=== PATIENT | male | born 1945 | race Caucasian/White ===

== ENCOUNTER 2021-10-11 11:10 | Inpatient (IN) | payer OTHER, MEDICAID, SELFPAY ==
[~2021-10-11] VITALS: Ht 162.6 cm; Wt 75.7 kg
[2021-10-11 11:10] VITALS: BP_SYST 157
--- NOTE | 2021-10-11 11:10 | NUR ---
Code stroke called at 1110
--- NOTE | 2021-10-11 11:12 | NUR ---
[address]
--- NOTE | 2021-10-11 11:12 | NUR ---
BG 192
--- NOTE | 2021-10-11 11:14 | NUR ---
Ely reeves in ED - 10/11/21 at 1123 by [email or web address] Sent for CT at 1114.
--- NOTE | 2021-10-11 11:45 | NUR ---
MD FAIR CONDUCTED A TELE-MONITOR CONSULTATION/ASSESSMENT WITH PT.
[2021-10-11 12:22] LABS: BASOPHILS % (AUTO) 0.3 % (0.0-2.0); EOSINOPHILS % (AUTO) 0.4 % (0.0-4.0); HEMATOCRIT 43.5 % (36-54); HEMOGLOBIN 14.3 g/dL (14.0-18.0); LYMPHOCYTES # (AUTO) 0.6 K/uL (1.0-5.5); LYMPHOCYTES % (AUTO) 5.1 % (20.5-51.5); MEAN CORPUSCULAR HEMOGLOBIN 30 pg (27-31); MEAN CORPUSCULAR HGB CONC 33 % (32-36); MEAN CORPUSCULAR VOLUME 90 fL (79.0-98.0); MONOCYTES # (AUTO) 0.3 K/uL (0.0-1.0); MONOCYTES % (AUTO) 3.1 % (1.7-9.3); NEUTROPHILS # (AUTO) 9.8 K/uL (1.8-7.7); NEUTROPHILS % (AUTO) 91.1 % (40.0-70.0); PLATELET COUNT (AUTO) 157 K/uL (130-430); RED BLOOD CELL COUNT(AUTO) 4.83 MIL/uL (4.2-6.2); RED CELL DISTRIBUTION WIDTH 14.1 % (9.0-15.0); WHITE BLOOD COUNT (AUTO) 10.8 K/uL (4.8-10.8)
[2021-10-11 12:30] LABS: ANION GAP 11 (5-15); CHLORIDE 107 mmol/L (98-107); CREATININE 2.46 mg/dL (0.55-1.30); GLUCOSE 198 mg/dL (70-99); POTASSIUM 4.8 mmol/L (3.5-5.1); SODIUM SERUM 139 mmol/L (136-145); UREA NITROGEN, BLOOD 37 mg/dL (8-21)
[2021-10-11 12:36] LABS: ALANINE AMINOTRANSFERASE 25 U/L (12-78); ALBUMIN 3.5 g/dL (3.4-4.8); ASPARTATE AMINOTRANSFERASE 14 U/L (10-37); TOTAL BILIRUBIN 0.4 mg/dL (0.0-1.0)
[2021-10-11 12:52] LABS: INR 0.9 (0.80-1.20); PROTHROMBIN TIME 9.5 SECS (9.5-12.5)
--- NOTE | 2021-10-11 13:57 | NUR ---
PT HAS REMAINED STABLE. NO S/S OF [place] CVA, NO BLURRY VISION. NO VOMITING.
[2021-10-11] MEDS ORDERED: INSULIN REGULAR, HUMAN 100 UNITS/ML, 10 ML VIAL (humuLIN R) SUBCUT PRN (14:15)
[2021-10-11] MEDS ORDERED: DEXTROSE 50% JECT 50 ML DISP.SYRIN IVP PRN (14:15)
[2021-10-11 16:54] LABS: BILIRUBIN,URINE NEGATIVE (NEGATIVE); BLOOD, URINE 2+ (NEGATIVE); CLARITY/URINE CLEAR (CLEAR); COLOR,URINE YELLOW (YELLOW); GLUCOSE,URINE NEGATIVE (NEGATIVE); KETONES,URINE NEGATIVE (NEGATIVE); LEUKOCYTE ESTERASE ,URINE NEGATIVE (NEGATIVE); NITRITE, URINE NEGATIVE (NEGATIVE); PROTEIN URINE NEGATIVE (NEGATIVE); UROBILINOGEN,URINE 0.2 (0.2-1.0)
[2021-10-11 17:21] LABS: BARBITURATE, URINE NEGATIVE (NEG <=200); BENZODIAZEPINE, URINE NEGATIVE (NEG <=150); CANNABINOID, URINE NEGATIVE (NEG <=50); COCAINE, URINE NEGATIVE (NEG <=150); METHAMPHETAMINES SCREEN,URINE NEGATIVE (NEG <=500); OPIATE, URINE NEGATIVE (NEG <=100); PHENCYCLIDINE SCREEN,URINE NEGATIVE (NEG <=25); UR TRICYCLIC ANTIDEPRESSANTS NEGATIVE (NEG <=300); URINE AMPHETAMINE NEGATIVE (NEG <=500); URINE METHADONE NEGATIVE (NEG <=200); URINE OXYCODONE SCREEN NEGATIVE (NEG <=100); URINE PROPOXYPHENE SCREEN NEGATIVE (NEG <=300)
[2021-10-11 17:46] LABS: BACTERIA,URINE RARE /HPF (None Seen); WBC,URINE 0-3 /HPF (0-3)
[2021-10-11 17:47] LABS: MUCUS,URINE None Seen /LPF (None Seen)
--- NOTE | 2021-10-11 18:43 | NUR ---
PT TAKEN TO THE TELE FLOOR.
--- NOTE | 2021-10-11 18:43 | NUR ---
IV INSERTED TO THE LEFT HAND 22G.
--- NOTE | 2021-10-11 18:53 | NUR ---
ADMISSION NOTE: Received patient from ER via [facility]. Patient admitted with diagnosis of DIZZINESS. Patient is awake, alert, oriented X 4. Patient oriented to hospital room, call light, toileting and safety-teach back done. Call light within reach. Will continue monitor until endorse to weight shifter RN.
--- NOTE | 2021-10-11 19:20 | NUR ---
RECEIVED BEDSIDE REPORT. PT IN BED AWAKE AND ABLE TO MAKE NEEDS KNOWN. RR EVEN AND UNLABORED ON RA. HOB ELEVATED. BED RAILS UPX2. ALL NEEDS MEET AT THIS TIME. CALL LIGHT WITHIN REACH. WILL CONTINUE TO MONITOR.
[2021-10-11 19:56] VITALS: BP_SYST 155
[2021-10-11] MEDS: NACL 0.9% 1,000 ML IV SCH (20:45)
[2021-10-11 20:48] VITALS: BP_SYST 158
[2021-10-12] VITALS (9 sets, daily range): BP systolic 118–173
--- NOTE | 2021-10-12 | NUR ---
PT EDUCATED TO USE CALL LIGHT IF HE NEEDS ASSISTANCE. PT SET BED ALARM OFF TRYING TO STAND TO USE URINAL. PT RE-EDUCATED TO CALL FOR HELP. WILL CONTINUE TO MONITOR.
[2021-10-12] MEDS: NACL 0.9% 1,000 ML IV SCH (06:20)
--- NOTE | 2021-10-12 06:56 | NUR ---
PT IN BED ASLEEP. PT BLOOD SUGAR 91. PT DENIES FEELING DIZZINESS WHILE LAYING DOWN. HOB ELEVATED. BED RAILS UPX2. CALL LIGHT WITHIN REACH. BED LOCKED IN LOWEST POSITION. WILL ENDORSE CARE TO DAY RN.
--- NOTE | 2021-10-12 08:24 | NUR ---
alert, wide awake, and oriented. able to move right arm and right leg easily; with left arm, with difficulty. Claimed he had 3 strokes in the past. blood pressure taken on both arms, seen by dr Simental this am, awaiting new orders for bp.
[2021-10-12] MEDS ORDERED: hydrALAZINE HCL 20 MG/ML VIAL IVP PRN (09:00)
[2021-10-12] MEDS ORDERED: ENALAPRILAT DIHYDRATE 1.25 MG/ML VIAL IVP PRN (09:00)
--- NOTE | 2021-10-12 09:19 | NUR ---
PAGED DR GARCIA PAGED DR GARCIA FOR ORDERS SPOKE TO JAYMIE AT EXCHANGE
--- NOTE | 2021-10-12 09:24 | NUR ---
got a list of home meds from Jenny grubbs. attending paged x 1, no return phone call yet. for now will administer clonidine 0.1mg po, let's see whether it lowers his bp.
[2021-10-12] MEDS: cloNIDine HCL 0.1 MG TABLET PO PRN ×2 (09:28→21:19)
[2021-10-12] MEDS: ASPIRIN 325 MG TABLET (ECOTRIN) PO SCH (09:29)
[2021-10-12 09:44] LABS: BASOPHILS % (AUTO) 0.6 % (0.0-2.0); EOSINOPHILS # (AUTO) 0.1 K/uL (0.0-0.4); EOSINOPHILS % (AUTO) 1.3 % (0.0-4.0); HEMATOCRIT 43.9 % (36-54); HEMOGLOBIN 14.5 g/dL (14.0-18.0); LYMPHOCYTES # (AUTO) 0.8 K/uL (1.0-5.5); LYMPHOCYTES % (AUTO) 10.8 % (20.5-51.5); MEAN CORPUSCULAR HEMOGLOBIN 30 pg (27-31); MEAN CORPUSCULAR HGB CONC 33 % (32-36); MEAN CORPUSCULAR VOLUME 90 fL (79.0-98.0); MONOCYTES # (AUTO) 0.3 K/uL (0.0-1.0); MONOCYTES % (AUTO) 4.5 % (1.7-9.3); NEUTROPHILS # (AUTO) 6.4 K/uL (1.8-7.7); NEUTROPHILS % (AUTO) 82.8 % (40.0-70.0); PLATELET COUNT (AUTO) 168 K/uL (130-430); RED BLOOD CELL COUNT(AUTO) 4.87 MIL/uL (4.2-6.2); RED CELL DISTRIBUTION WIDTH 14.3 % (9.0-15.0); WHITE BLOOD COUNT (AUTO) 7.7 K/uL (4.8-10.8)
[2021-10-12] MEDS ORDERED: TAMS0.4C96 PO (09:45)
[2021-10-12] MEDS ORDERED: LISI20TA30 PO (09:45)
[2021-10-12] MEDS ORDERED: NOR10 PO (09:45)
[2021-10-12] MEDS ORDERED: GLYB5TAB7 PO (09:45)
[2021-10-12 10:35] LABS: ANION GAP 8 (5-15); CALCIUM 8.2 mg/dL (8.4-11.0); CHLORIDE 106 mmol/L (98-107); CREATININE 2.31 mg/dL (0.55-1.30); GLUCOSE 179 mg/dL (70-99); POTASSIUM 5.6 mmol/L (3.5-5.1); SODIUM SERUM 138 mmol/L (136-145); UREA NITROGEN, BLOOD 32 mg/dL (8-21)
[2021-10-12 10:49] LABS: ALANINE AMINOTRANSFERASE 22 U/L (12-78); ALBUMIN 3.2 g/dL (3.4-4.8); ASPARTATE AMINOTRANSFERASE 16 U/L (10-37); CHOLESTEROL 182 mg/dL (<200); HDL CHOLESTEROL 46 mg/dL (>45); LDL CHOLESTEROL 116 mg/dL (<100); THYROID STIMULATING HORMONE 1.41 uIu/mL (0.34-4.82); TOTAL BILIRUBIN 0.5 mg/dL (0.0-1.0); TRIGLYCERIDES 105 mg/dL (30-150)
--- NOTE | 2021-10-12 17:31 | NUR ---
very alert, oriented, out of bed, walked with standby assistance to the bathroom, gait slow, but steady denied blurred vision, nor dizziness. now US Renal done at bedside. Has an uneventful day.
--- NOTE | 2021-10-12 18:57 | NUR ---
Paged Cholo Christian s/w Tata.
--- NOTE | 2021-10-12 19:13 | NUR ---
today chemistry revealed K+ , bun/cr elevated. attending paged x 1. oncoming to follow up with this.
--- NOTE | 2021-10-12 19:30 | NUR ---
Received patient from AM shift nurse. Patient is AA&Ox4 able to make needs known, denies chest pain, or SOB. Chest rise is even and unlabored on RA. Normal hear sounds present. Active bowel sounds x4. Patient currently has no complaints. Call light is with reach, bed is locked, in the lowest position with bed rails up. Will continue to monitor throughout the shift.
[2021-10-12] MEDS: glyBURIDE 5 MG TABLET PO SCH (21:16)
--- NOTE | 2021-10-12 22:29 | NUR ---
Spoke to Dr. Caballero regarding patient's abnormal lab values and received an order for x1 dose of Kayexalate 30gm PO. Will carry out order and monitor.
[2021-10-12] MEDS ORDERED: SODIUM POLYSTYRENE SULFONATE 15 GM/60 ML UDBTL PO ONE (22:30)
[2021-10-12] MEDS ORDERED: SODIUM POLYSTYRENE SULFONATE 15 GM/60 ML UDBTL ONE (23:23)
[2021-10-13] VITALS: BP_SYST 132
--- NOTE | 2021-10-13 05:19 | NUR ---
Nutrition Update Hardy Scale 17 noted. Pt admitted for Dizziness Diet: 2gm Na BMI: 28.7 kg/m2 RD to follow per nutrition care standards.
--- NOTE | 2021-10-13 05:40 | NUR ---
Patient BS level was critically low at 45. Patient is ALERT with no s/s of ALOC or distress. Dextrose IV push was as prescribed for BS below 70 due to patient being Alert but uncooperative. will continue to monitor.
--- NOTE | 2021-10-13 06:20 | NUR ---
IV Push Dextrose was given and BS was reassessed at 168. Dr. Simental was called for notification but did not answer.
--- NOTE | 2021-10-13 06:52 | NUR ---
Patient is currently sleeping no s/s of distress is noted. All current needs have been met. Call light is within reach bed is locked, in the lowest position with bed rails up. Will differ further care to AM shift nurse for continuity of care.
[2021-10-13 07:54] VITALS: BP_SYST 145
[2021-10-13] MEDS: glyBURIDE 5 MG TABLET PO SCH ×2 (08:27→20:57)
[2021-10-13] MEDS ORDERED: amLODIPine BESYLATE 10 MG TABLET ONE (08:31)
[2021-10-13] MEDS: TAMSULOSIN HCL 0.4 MG CAP PO SCH (08:37)
[2021-10-13] MEDS: ASPIRIN 325 MG TABLET (ECOTRIN) PO SCH (08:38)
[2021-10-13] MEDS: amLODIPine BESYLATE 10 MG TABLET PO SCH (08:39)
--- NOTE | 2021-10-13 09:59 | NUR ---
CONSULTATION PAGED REASON FOR CONSULTATION:DIZZINESS WAS CONSULT CALLED?Y PERSON WHO WAS NOTIFIED:SHLOMO CONSULTING PHYSICIAN:DAVY VYAS SENIOR SHAREPOINT ARCHITECT SPECIALTY:CARDIO SENIOR SHAREPOINT ARCHITECT PHONE NUMBER:[phone] REQUESTING PHYSICIAN:NAZARIO AVILA
[2021-10-13 11:37] VITALS: BP_SYST 145
[2021-10-13] MEDS ORDERED: CLOPIDOGREL BISULFATE 75 MG TABLET PO ONE (13:00)
[2021-10-13] MEDS ORDERED: ATORVASTATIN 20 MG TABLET PO ONE (13:00)
[2021-10-13 15:08] VITALS: BP_SYST 125
--- NOTE | 2021-10-13 18:50 | NUR ---
NOTE Pt has been getting OOB to BS chair with standby assist. Pt worked with PT on ambulating in hallway. Pt uses cane at home. Pt was assisted to restroom for bowel movement. Pt encouraged throughout rhe shift to call for assist before getting OOB. Pt was checked on q1' and PRn all shift for needs and care. Pt's bed in low position and bed alarm on all shift. Pt went to [facility] dept for MRI of brain/head w/o contrast around 1130am via wheelchair and was then back in room 15 minutes later. Pt next to nurses' station for close observation. Pt denies any needs at this time. Call light within reach. Tele unit attached and intact all shift.
--- NOTE | 2021-10-13 19:59 | NUR ---
Received patient from AM shift nurse. Patient is AA&Ox4 able to make needs known, denies chest pain or SOB. Chest rise is even and unlabored on RA with CTA. Normal hear sounds present. Active bowel sounds x4 on Auscultation, denies pain with palpation. Patient denies any other pain or discomfort. PIV is present on the Right wrist that is patent and saline locked. Call light is within reach, bed is is locked and in the lowest position with bed rails up. Will continue to monitor throughout the shift.
[2021-10-13 20:00] VITALS: BP_SYST 138
--- NOTE | 2021-10-14 00:29 | NUR ---
Patient is currently resting BS was assessed at 0000 and noted to be at 70 so patient was offered juice and snack which he consumed. No patient has no s/s of distress will continue to monitor for any changes.
[2021-10-14 00:37] VITALS: BP_SYST 142
--- NOTE | 2021-10-14 06:46 | NUR ---
Patient is currently resting with no s/s of distress at this time. All current needs have been met. Call light is within reach, bed is locked in the lowest position with bed rails up. Will differ further care to AM shift for continuity of care.
--- NOTE | 2021-10-14 07:55 | NUR ---
OPENING NOTE Received shift report from casino shift manager RN. Patient currently resting in bed and respirations remain even and non-labored on room air. IV is patent and saline-locked. Bed locked in lowest position and call light is within reach. Will continue to monitor.
[2021-10-14 08:00] VITALS: BP_SYST 142
[2021-10-14] MEDS: TAMSULOSIN HCL 0.4 MG CAP PO SCH (08:52)
[2021-10-14] MEDS: amLODIPine BESYLATE 10 MG TABLET PO SCH (08:53)
[2021-10-14] MEDS: glyBURIDE 5 MG TABLET PO SCH (08:53)
[2021-10-14] MEDS ORDERED: ATORVASTATIN 20 MG TABLET PO SCH (09:00)
[2021-10-14] MEDS ORDERED: ASPIRIN 81 MG TABLET(ECOTRIN) PO SCH (09:00)
[2021-10-14] MEDS ORDERED: CLOPIDOGREL BISULFATE 75 MG TABLET PO SCH (09:00)
[2021-10-14] MEDS ORDERED: ASPI-1155 PO (11:29)
[2021-10-14] MEDS ORDERED: CLOP75TA32 PO (11:29)
[2021-10-14] MEDS ORDERED: LIP40 PO (11:29)
[2021-10-14 11:50] VITALS: BP_SYST 142
[2021-10-14 12:00] VITALS: BP_SYST 142
--- NOTE | 2021-10-14 17:32 | NUR ---
PHYSICAL THERAPY CO-SIGN The Physical Therapy Progress Notes documented by Field Sales Representative have been reviewed. Reviewed/Co-Signed by: Emmett Garcia Documentation Done by: AHSAN MAR PTA Addendum: 10/14/21 at 1733 by Emmett Garcia PT Amended: Links added.
--- NOTE | 2021-10-15 09:51 | NUR ---
Discharge Planning: DCP faxed DC note to Luis @ [facility] [phone].
== END 2021-10-14 12:50 | disposition home or self-care (01) | DRG 149 ==
LOC: SED 11:10 → STU 14:47
PROVIDERS: ADMIT Internal Medicine Hospice and Palliative Medicine; ATTEND Internal Medicine Hospice and Palliative Medicine
DX: R42 Dizziness and giddiness (principal); I10 Essential (primary) hypertension; Z20.822 Contact with and (suspected) exposure to COVID-19; E78.5 Hyperlipidemia, unspecified; E11.9 Type 2 diabetes mellitus without complications; I69.344 Monoplegia of lower limb following cerebral infarction affecting left non-dominant side; N18.30 Chronic kidney disease, stage 3 unspecified
CPT/HCPCS: 36415; 70450-TC; 70551; 71045; 76376; 76770; 80053; 80061; 80307; 81000; 82962; 83036; 84443; 84484; 85025; 85610-TC; 85730-TC; 86886; 86900; 86901; 93005; 93306; 97110-GP; 97112-GP; 97116-GP; 97530-GP; 99285; G0378